=== PATIENT | female | born 1985 | race Caucasian/White ===

== ENCOUNTER → 2017-07-24 | Outpatient (CLI) | payer BC ==
[2017-07-24 17:13] LABS: Clam IgE <0.10 kU/L; Egg White IgE <0.10 kU/L; Peanut IgE <0.10 kU/L; Scallop IgE <0.10 kU/L; Soybean IgE <0.10 kU/L
[2017-07-24 17:25] LABS: Alternaria alternata IgE <0.10 kU/L; Aspergillus fumagatus IgE <0.10 kU/L; Cat Epith & Dander IgE 1.32 kU/L; Cladosporian herbarum IgE <0.10 kU/L; Dermato. farinae IgE <0.10 kU/L; Maple (Box Elder) IgE <0.10 kU/L; Orchard Grs(Cocksfoot) IgE <0.10 kU/L; Ragweed,Common IgE <0.10 kU/L
== END | disposition home or self-care (01) ==
LOC: LABWHC1 10:36
PROVIDERS: ATTEND Internal Medicine Critical Care Medicine
DX: J31.0 Chronic rhinitis (principal)
CPT/HCPCS: 36415; 82785; 86003

== ENCOUNTER → 2018-07-07 | Outpatient (CLI) | payer BC | LOC: LABWHC1 08:35 | PROVIDERS: ATTEND Otolaryngology | DX: J30.89 Other allergic rhinitis (principal) | CPT/HCPCS: 36415 ==

== ENCOUNTER → 2021-11-28 | Outpatient (CLI) | payer BC ==
--- NOTE | 2021-11-28 14:17 | US ---
EXAMINATION TYPE: US thyroid st tissue head/neck DATE OF EXAM: 11/28/2021 COMPARISON: NONE CLINICAL HISTORY: R22.1 Left Neck Mass. Left posterior neck palpable area x 1 month Left neck: multiple lymph nodes seen with largest measuring 3.5 x 1.1 x 1.7cm Several prominent and enlarged left neck lymph nodes on images stated that area of clinical concern i ncluding dominant lymph node with eccentric cortical thickening but preservation of fatty hilum towar ds end of study. IMPRESSION: Abnormal adenopathy is confirmed. Differential includes infectious and/or inflammatory e tiologies versus neoplasm. If palpable abnormality does not resolve or if felt to become bigger furth er investigation with contrast-enhanced neck CT would be advised to exclude malignancy.
== END | disposition home or self-care (01) ==
LOC: RADUSWWP 12:23
PROVIDERS: ATTEND Otolaryngology
DX: R59.9 Enlarged lymph nodes, unspecified (principal)
CPT/HCPCS: 76536

== ENCOUNTER → 2021-11-30 | Outpatient (CLI) | payer BC ==
--- NOTE | 2021-11-30 18:34 | CONS ---
CONSULTATION DATE OF SERVICE: 11/30/2021 This 36-year-old lady has been evaluated in [facility] for possible obstructive sleep apnea-hypopnea syndrome and sleepiness during the day. HISTORY OF PRESENT ILLNESS/SLEEP-WAKE EVALUATION: Patient's usual sleep schedule on weekdays is from 10 p.m. to 7 a.m. and on weekends from 11 p.m. to 9 or 9:30 a.m. No problems with falling asleep. No TV in bedroom. She usually sleeps on the stomach position. She has very loud snoring and episodes of gasping for air. She wakes up from sleep once with nocturia. She does have jerking movements of her legs during the night. Rarely she has episodes of mlx-ls-pletw movements. No history of hypnagogic hallucinations, sleep paralysis or cataplexy. During the day, the patient feels sleepiness. Banks Sleepiness Scale is increased at 10. She may take one nap in the middle of the day. She describes that, even if she sleeps for many hours, she still feels sleepy during the day. PAST MEDICAL HISTORY: Positive for hypertension, recently under evaluation for neck tumor, allergies, sinusitis. PAST SURGICAL HISTORY: Breast reduction, appendectomy. MEDICATIONS: Phentermine, hydrochlorothiazide, Flonase, Claritin, multivitamins, losartan. SOCIAL HISTORY: Negative for smoking. Alcohol consumption occasional. FAMILY HISTORY: Hypertension, snoring, sleep apnea, thyroid problems, diabetes. REVIEW OF SYSTEMS: Snoring, multiple awakenings from sleep, sleepiness during the day. No fevers. No double vision. No recent chest pain. No shortness of breath. No abdominal pain. No bleeding episodes. No blood in the urine. No seizure episodes. PHYSICAL EXAMINATION: GENERAL: Pleasant lady without distress. VITAL SIGNS: BP 177/97, HR 88, RR 16, height 5 feet 5 inches, weight 264, body mass index 43.9, temperature 97.8, oxygen saturation at room air 98%. HEENT: PERRLA, EOMI, evaluation of oropharynx showed tongue protrudes midline. Extremely low position of soft palate; Mallampati IV. NECK: Supple, no JVD. Thyroid is not palpable. Neck is wide; 16-3/4 inches in circumference. LUNGS: Clear to percussion and to auscultation. Good air exchange. No wheezing or rhonchi. HEART: S1, S2 regular. No murmurs, gallops, or rubs. ABDOMEN: Obese. EXTREMITIES: No clubbing or cyanosis. SOLID WASTE ENGINEER: Awake, alert, and oriented X3. Cranial nerves 2 to 7 intact. There is no fasciculation or atrophy. noted. No focal deficits observed. IMPRESSION: 1. Loud snoring, awakenings from sleep with gasping for air, extremely low position of soft palate, Mallampati IV, wide neck, 16-3/4 inches in circumference, sleepiness, Banks Sleepiness Scale increased to 10; obstructive sleep apnea-hypopnea syndrome. 2. Obesity; body mass index 43.9. 3. Hypertension. 4. Neck tumor, under evaluation. 5. Allergies. 6. History of sinusitis. 7. Status post breast reduction surgery. 8. Rare episodes of ztx-pf-alkxs movements. 9. Status post appendectomy. PLAN: 1. Home sleep apnea test for evaluation of patient's breathing during sleep. 2. Following plan after reviewing results of sleep study. 3. CPAP/BiPAP titration if sleep study confirms obstructive sleep apnea-hypopnea syndrome. 4. Preferable position during sleep on the side. 5. No driving if patient feels any sleepiness. 6. I will see patient for follow up visit to explain results of testing and following plan. Thank you very much for referring this patient for consultation. Sincerely, Chilango Castillo MD, PhD, FAASM Diplomat of [place] [employer] Sleep Medicine [employer] of [place] [employer] [facility] [place] MMODL / SHAVONN: [id number] /
== END | disposition home or self-care (01) ==
LOC: SLEEP 14:34
PROVIDERS: ATTEND Internal Medicine
DX: G47.33 Obstructive sleep apnea (adult) (pediatric) (principal); R53.83 Other fatigue
CPT/HCPCS: 99211

== ENCOUNTER 2021-12-01 09:29 | Day surgery (SDC) | payer BC ==
[2021-12-01 10:09] VITALS: RESP 16; TEMP 98.1
--- NOTE | 2021-12-01 10:55 | US ---
ULTRASOUND GUIDED CORE BIOPSY LEFT NECK LYMPHADENOPATHY: CLINICAL HISTORY: Left neck lymphadenopathy FINDINGS: The procedure was explained to the patient. The risks, complications, benefits and alternatives were discussed and any questions were answered. Informed consent was obtained. Patient was placed supin e on the ultrasound table and prepped and draped in the usual sterile fashion. Utilizing a 18-gauge core biopsy needle, five passes were made into the left neck requested lymph node. Patient was stable throughout the procedure. Pathology is pending. All elements of maximal barrier and sterile technique were utilized. IMPRESSION: 1. Successful ultrasound guided biopsy left neck lymph node.
[2021-12-01 17:33] VITALS: BP 135/81; PULSE 89
== END 2021-12-01 11:15 | disposition home or self-care (01) ==
LOC: RADPROMAIN 09:29
PROVIDERS: ATTEND Otolaryngology
DX: R59.1 Generalized enlarged lymph nodes (principal)
CPT/HCPCS: 38505; 76942; 88305; 88341; 88342

== ENCOUNTER 2022-01-31 17:44 | Emergency (ER) | payer BC ==
[2022-01-31 19:34] VITALS: BP 163/92; PULSE 106; RESP 18; TEMP 98.6
[2022-01-31 20:02] LABS: Appearance,Urine Cloudy (Clear); Bacteria,Urine Occasional /hpf; Bilirubin,Urine Negative (Negative); Blood,Urine Negative (Negative); Color,Urine Yellow; Glucose,Urine (UA) Negative (Negative); Ketones,Urine Trace (Negative); Leukocyte Esterase,Urine Large (Negative); Mucus,Urine Rare /hpf; Nitrite,Urine Negative (Negative); PH, Urine 6.5 (5.0-8.0); Protein,Urine 1+ (Negative); RBC,Urine 10 /hpf (0-5); Specific Gravity,Urine 1.034 (1.001-1.035); Squamous Epithelial Cell,Urine 18 /hpf (0-4); Urobilinogen,Urine <2.0 mg/dL (<2.0); WBC,Urine >182 /hpf (0-5)
--- NOTE | 2022-01-31 20:41 | XR ---
EXAMINATION TYPE: XR KUB DATE OF EXAM: 01/31/2022 COMPARISON: None HISTORY: Abdominal pain TECHNIQUE: 2 views upright FINDINGS: There is no sign of intestinal obstruction or pneumoperitoneum. Fecal pattern is normal. Th ere is thoracolumbar mild levoscoliosis. No pathologic calcifications. IMPRESSION: Nonacute abdomen.
[2022-01-31 20:45] LABS: Basophils # (A) 0.1 k/uL (0-0.2); Basophils % (A) 1 %; Eosinophils # (A) 0.2 k/uL (0-0.7); Eosinophils % (A) 2 %; HGB 12.7 gm/dL (11.4-16.0); Lymphocytes # (A) 3.3 k/uL (1.0-4.8); Lymphocytes % (A) 33 %; MCH 27.1 pg (25.0-35.0); MCHC 32.6 g/dL (31.0-37.0); MCV 83.1 fL (80.0-100.0); Mean Platelet Volume 6.5; Monocytes # (A) 0.4 k/uL (0-1.0); Monocytes % (A) 4 %; Neutrophils % (A) 60 %; Platelet Count 463 k/uL (150-450); RBC 4.69 m/uL (3.80-5.40)
[2022-01-31 20:54] LABS: ALT 27 U/L (4-34); AST 34 U/L (14-36); African American GFR (CKD) >90 (>60 ml/min/1.73 sqM); Albumin 4.5 g/dL (3.5-5.0); Alkaline Phosphatase 77 U/L (38-126); Amylase 45 U/L (30-110); Anion Gap 11 mmol/L; Blood Urea Nitrogen 9 mg/dL (7-17); Calcium 9.1 mg/dL (8.4-10.2); Carbon Dioxide 24 mmol/L (22-30); Chloride 104 mmol/L (98-107); Glucose 114 mg/dL (74-99); Lipase 70 U/L (23-300); Non-African American GFR(CKD) >90 (>60 ml/min/1.73 sqM); Potassium 3.5 mmol/L (3.5-5.1); Sodium 139 mmol/L (137-145); Total Bilirubin 0.4 mg/dL (0.2-1.3); Total Protein 7.4 g/dL (6.3-8.2)
--- NOTE | 2022-01-31 21:01 | ED ---
General Adult HPI - General Chief complaint: Urogenital Stated complaint: Abd Pain Time Seen by Provider: 01/31/22 21:00 Source: patient, RN notes reviewed, old records reviewed Mode of arrival: ambulatory Limitations: no limitations - History of Present Illness Initial comments: 36-year-old female presents to the emergency room with left flank pain radiating into her left lower abdomen since Saturday. Patient states she does have pain with urination. She has a history of kidney stones. She denies any fevers no nausea vomiting or diarrhea. Patient was evaluated in triage -: days(s) (4) Location: left (flank, left lower abdomen) Severity scale (1-10): 10 Quality: sharp Consistency: constant Improves with: none Associated Symptoms: other (dysuria) - Related Data Home Medications Medication Instructions Recorded Confirmed Hydrochlorothiazide 12.5 mg PO DAILY 11/14/21 12/01/21 [hydroCHLOROthiazide] Loratadine [Claritin] 10 mg PO DAILY 11/14/21 12/01/21 Losartan [Cozaar] 12.5 mg PO DAILY 11/14/21 12/01/21 Multivitamins, Thera [Multivitamin 1 tab PO DAILY 11/14/21 12/01/21 (formulary)] Non Formulary Drug 1 each PO DAILY 11/14/21 12/01/21 Phentermine HCl 37.5 mg PO DAILY 11/14/21 12/01/21 Terbinafine [LamISIL] 250 mg PO DAILY 11/14/21 12/01/21 Previous Rx's Medication Instructions Recorded Sulfamethox-Tmp 800-160Mg [Bactrim 1 tab PO Q12HR 5 Days #10 tab 01/31/22 DS 800-160 mg] Allergies Allergy/AdvReac Type Severity Reaction Status Date / Time latex Allergy Rash/Hives Verified 01/31/22 19:34 Penicillins Allergy Nausea & Verified 01/31/22 19:34 Vomiting Review of Systems ROS Statement: Those systems with pertinent positive or pertinent negative responses have been documented in the HPI. ROS Other: All systems not noted in ROS Statement are negative. Past Medical History Past Medical History: Hypertension Additional Past Medical History / Comment(s): fugal infection under toenails, fibroids History of Any Multi-Drug Resistant Organisms: None Reported Past Surgical History: Appendectomy Additional Past Surgical History / Comment(s): uterine fibroid removal, breast reduction Additional Past Anesthesia/Blood Transfusion Reaction / Comment(s): difficult to awaken post anesthesia Past Psychological History: No Psychological Hx Reported Smoking Status: Never smoker Past Alcohol Use History: Occasional Past Drug Use History: None Reported - Past Family History Mother Family Medical History: Diabetes Mellitus, Hypertension Father Family Medical History: Coronary Artery Disease (CAD), Diabetes Mellitus, Hypertension General Exam Limitations: no limitations General appearance: alert, in no apparent distress Eye exam: Present: normal appearance. Absent: scleral icterus, conjunctival injection Respiratory exam: Absent: respiratory distress, accessory muscle use Cardiovascular Exam: Present: tachycardia GI/Abdominal exam: Present: soft, tenderness (Left lower abdominal) Extremities exam: Present: normal capillary refill Back exam: Present: CVA tenderness (L). Absent: CVA tenderness (R) Neurological exam: Present: alert, oriented X3 Psychiatric exam: Present: normal affect, normal mood Skin exam: Present: warm, dry, normal color. Absent: cyanosis, diaphoretic Course Vital Signs 01/31/22 19:31 Temperature 98.6 F Pulse Rate 106 H Respiratory 18 Rate Blood Pressure 163/92 O2 Sat by Pulse 98 Oximetry Medical Decision Making - Medical Decision Making Patient presents with left flank pain radiating into her left lower abdomen and dysuria since Saturday. She has a history of kidney stones. X-ray shows nonacute abdomen. CT the abdomen and pelvis was performed to rule out kidney stone and hydronephrosis. There is no evidence of renal stone or obstruction. No hydronephrosis. There is an enlarged uterus with irregular linear density in the posterior uterine fundus, could be calcification from demise vs atypical calcifying uterine fibroid. Patient says that she does have calcified fibroids. Serum HCG is negative. She was offered a transvaginal ultrasound and declined. There is no evidence of leukocytosis. Electrolytes are unremarkable. UA is cloudy with large leukocyte esterase greater than 182 white blood cell and bacteria. Patient will be treated for UTI with antibiotics and directed to follow up with her primary care doctor this week. Take Tylenol and/or Motrin as needed for any pain. Return to the emergency room with any new or concerning symptoms. She states she also has an appointment with Dr. Beverly next week to discuss her painful periods. - Lab Data Result diagrams: 01/31/22 20:35 01/31/22 20:35 Lab Results 01/31/22 01/31/22 01/31/22 Range/Units 19:36 20:35 20:35 WBC 10.0 (3.8-10.6) k/uL RBC 4.69 (3.80-5.40) m/uL Hgb 12.7 (11.4-16.0) gm/dL Hct 39.0 (34.0-46.0) % MCV 83.1 (80.0-100.0) fL MCH 27.1 (25.0-35.0) pg MCHC 32.6 (31.0-37.0) g/dL RDW 13.0 (11.5-15.5) % Plt Count 463 H (150-450) k/uL MPV 6.5 Neutrophils % 60 % Lymphocytes % 33 % Monocytes % 4 % Eosinophils % 2 % Basophils % 1 % Neutrophils # 6.0 (1.3-7.7) k/uL Lymphocytes # 3.3 (1.0-4.8) k/uL Monocytes # 0.4 (0-1.0) k/uL Eosinophils # 0.2 (0-0.7) k/uL Basophils # 0.1 (0-0.2) k/uL Sodium 139 (137-145) mmol/L Potassium 3.5 (3.5-5.1) mmol/L Chloride 104 (98-107) mmol/L Carbon Dioxide 24 (22-30) mmol/L Anion Gap 11 mmol/L BUN 9 (7-17) mg/dL Creatinine 0.57 (0.52-1.04) mg/dL Est GFR (CKD-EPI)AfAm >90 (>60 ml/min/1.73 sqM) Est GFR (CKD-EPI)NonAf >90 (>60 ml/min/1.73 sqM) Glucose 114 H (74-99) mg/dL Plasma Lactic Acid Ernst (0.7-2.0) mmol/L Calcium 9.1 (8.4-10.2) mg/dL Total Bilirubin 0.4 (0.2-1.3) mg/dL AST 34 (14-36) U/L ALT 27 (4-34) U/L Alkaline Phosphatase 77 (38-126) U/L Total Protein 7.4 (6.3-8.2) g/dL Albumin 4.5 (3.5-5.0) g/dL Amylase 45 (30-110) U/L Lipase 70 (23-300) U/L HCG, Qual Urine Color Yellow Urine Appearance Cloudy H (Clear) Urine pH 6.5 (5.0-8.0) Ur Specific [place] 1.034 (1.001-1.035) Urine Protein 1+ H (Negative) Urine Glucose (UA) Negative (Negative) Urine Ketones Trace H (Negative) Urine Blood Negative (Negative) Urine Nitrite Negative (Negative) Urine Bilirubin Negative (Negative) Urine Urobilinogen <2.0 (<2.0) mg/dL Ur Leukocyte Esterase Large H (Negative) Urine RBC 10 H (0-5) /hpf Urine WBC >182 H (0-5) /hpf Ur Squamous Epith Cells 18 H (0-4) /hpf Urine Bacteria Occasional H (None) /hpf Urine Mucus Rare H (None) /hpf 01/31/22 01/31/22 Range/Units 20:35 20:35 WBC (3.8-10.6) k/uL RBC (3.80-5.40) m/uL Hgb (11.4-16.0) gm/dL Hct (34.0-46.0) % MCV (80.0-100.0) fL MCH (25.0-35.0) pg MCHC (31.0-37.0) g/dL RDW (11.5-15.5) % Plt Count (150-450) k/uL MPV Neutrophils % % Lymphocytes % % Monocytes % % Eosinophils % % Basophils % % Neutrophils # (1.3-7.7) k/uL Lymphocytes # (1.0-4.8) k/uL Monocytes # (0-1.0) k/uL Eosinophils # (0-0.7) k/uL Basophils # (0-0.2) k/uL Sodium (137-145) mmol/L Potassium (3.5-5.1) mmol/L Chloride (98-107) mmol/L Carbon Dioxide (22-30) mmol/L Anion Gap mmol/L BUN (7-17) mg/dL Creatinine (0.52-1.04) mg/dL Est GFR (CKD-EPI)AfAm (>60 ml/min/1.73 sqM) Est GFR (CKD-EPI)NonAf (>60 ml/min/1.73 sqM) Glucose (74-99) mg/dL Plasma Lactic Acid Ernst 1.7 (0.7-2.0) mmol/L Calcium (8.4-10.2) mg/dL Total Bilirubin (0.2-1.3) mg/dL AST (14-36) U/L ALT (4-34) U/L Alkaline Phosphatase (38-126) U/L Total Protein (6.3-8.2) g/dL Albumin (3.5-5.0) g/dL Amylase (30-110) U/L Lipase (23-300) U/L HCG, Qual Not Detected Urine Color Urine Appearance (Clear) Urine pH (5.0-8.0) Ur Specific [place] (1.001-1.035) Urine Protein (Negative) Urine Glucose (UA) (Negative) Urine Ketones (Negative) Urine Blood (Negative) Urine Nitrite (Negative) Urine Bilirubin (Negative) Urine Urobilinogen (<2.0) mg/dL Ur Leukocyte Esterase (Negative) Urine RBC (0-5) /hpf Urine WBC (0-5) /hpf Ur Squamous Epith Cells (0-4) /hpf Urine Bacteria (None) /hpf Urine Mucus (None) /hpf Disposition Clinical Impression: UTI (urinary tract infection) Disposition: HOME SELF-CARE Condition: Good Instructions (If sedation given, give patient instructions): Urinary Tract Infection in Women (ED) Additional Instructions: Increase your fluid intake, Tylenol and or Motrin as needed for pain. Take antibiotics as prescribed. Follow-up with your primary care doctor within the next 7 days for reevaluation. Return to the emergency room with any new or concerning symptoms. Prescriptions: Sulfamethox-Tmp 800-160Mg [Bactrim DS 800-160 mg] 1 tab PO Q12HR 5 Days #10 tab Is patient prescribed a controlled substance at d/c from ED?: No Referrals: Emil Everett DO [Primary Care Provider] - 1-2 days
[2022-01-31] MEDS ORDERED: KETOROLAC 15 MG/ML 1 ML VIAL IVP STA (21:06)
[2022-01-31] MEDS ORDERED: SODIUM CHLORIDE 0.9% 1,000 ML IV ONE (21:06)
[2022-01-31] MEDS ORDERED: SULFAMETHOX-TMP 800-160MG 1 EACH TAB PO STA (21:39)
[2022-01-31] MEDS ORDERED: KETOROLAC 15 MG/ML 1 ML VIAL IM STA (21:46)
--- NOTE | 2022-01-31 21:50 | CT ---
EXAMINATION TYPE: CT abdomen pelvis wo con DATE OF EXAM: 01/31/2022 COMPARISON: None HISTORY: lower abd pain and flank pain CT DLP: 1637 mGycm Automated exposure control for dose reduction was used. Images obtained from the diaphragm to the floor the pelvis with no contrast. Lung bases are clear. There is no pleural effusion. Heart size is normal. No pericardial effusion. Li carolyn spleen pancreas gallbladder or stomach appear intact. The bile duct are not dilated. There is no adrenal mass. Kidneys have normal size and contour. No hydronephrosis. Ureters are not di lated. Bladder distends smoothly. There is enlarged uterus with irregular linear density in the poste rior uterine fundus. This could be calcification from a demise. Correlation with a history need ed. Atypical calcifying uterine fibroid also possible. Appendix not seen. No sign of thickened appendix. There is no mesenteric edema. No ascites or free air. No bowel obstruction. Lumbar vertebrae are of normal alignment. Posterior elements are intact. No compression fracture. Bon y pelvis is intact. The hip joints are intact. IMPRESSION: No evidence of renal stone or obstruction. Appendix not seen. Unusual calcification in the uterine fundus on the right side could be old demise or unusual ca lcifying fibroid.
== END 2022-01-31 23:37 | disposition home or self-care (01) ==
LOC: EC 17:44
DX: N39.0 Urinary tract infection, site not specified (principal); I10 Essential (primary) hypertension; Z91.040 Latex allergy status; Z88.0 Allergy status to penicillin; Z79.899 Other long term (current) drug therapy
CPT/HCPCS: 36415; 80053; 82150; 83605; 83690; 85025; 81001; 84703; 87086; 74018; 74176; 99284; 96372; J1885

== ENCOUNTER → 2022-04-20 | Outpatient (CLI) | payer BC ==
--- NOTE | 2022-04-21 09:53 | US ---
EXAMINATION TYPE: US st tissue neck DATE OF EXAM: 04/20/2022 COMPARISON: US dated 11/28/2021 CLINICAL HISTORY: 37-year-old female R22.1 SWELLING, MASS AND LUMP IN NECK. TECHNIQUE: Scanning was performed directly over palpable, as pointed out by patient, left posterior n chaya. FINDINGS: [employer] notes: There are two mildly prominent lymph nodes nodes noted, both measure 8 x 4 mm. Ear ly in the year, one of these lymph nodes was visualized measuring 11 x 8 x 5 mm.. IMPRESSION: 2 prominent lymph nodes left posterior neck corresponding to the patient's palpable site measuring up to 11 x 8 mm. Earlier in the year, one of these was seen measuring 8 x 4 mm. We note that the patien t's 11/28/2021 scan showed additional abnormal left cervical lymphadenopathy. Correlate with biopsy re sults and any established diagnosis.
== END | disposition home or self-care (01) ==
LOC: RADUSWWP 14:43
PROVIDERS: ATTEND Otolaryngology
DX: R59.0 Localized enlarged lymph nodes (principal)
CPT/HCPCS: 76536

== ENCOUNTER 2024-04-14 05:51 | Emergency (ER) | payer OTHER ==
[2024-04-14] MEDS ORDERED: PROCHLORPERAZINE INJ 10 MG/2 ML VIAL ONE (06:41)
[2024-04-14] MEDS ORDERED: FAMOTIDINE 20 MG/2 ML VIAL ONE (06:41)
[2024-04-14] MEDS ORDERED: SODIUM CHLORIDE 0.9% 1,000 ML BAG ONE (23:59)
--- NOTE | 2024-05-20 15:04 | XR ---
Patient Juliana Kruas ID [id number] Order # EXAMINATION TYPE: XR chest 2V DATE OF EXAM: 04/14/2024 COMPARISON: No comparison available on downtime PACS. INDICATION: Chest pain TECHNIQUE: Frontal and lateral views of the chest are obtained. FINDINGS: The heart size is normal. The pulmonary vasculature is normal. The lungs are clear. IMPRESSION: 1. No acute pulmonary process.
== END 2024-04-14 13:11 | disposition home or self-care (01) ==
LOC: EC 05:51
DX: R07.9 Chest pain, unspecified (principal); R11.2 Nausea with vomiting, unspecified
CPT/HCPCS: 93005; 85379; 80053; 82150; 83605; 83690; 83735; 84100; 84484; 85025; 85610; 85730; 81003; 81025; 71046; 99285; J0780; J3490

== ENCOUNTER → 2024-09-16 | Outpatient (CLI) | payer OTHER ==
--- NOTE | 2024-09-16 20:06 | MR ---
EXAMINATION TYPE: MR lumbar spine wo con DATE OF EXAM: 09/16/2024 COMPARISON: NONE HISTORY: low back pain, heaviness feeling in legs, pain into left buttock TECHNIQUE: Multiplanar, multisequence imaging of the lumbar spine is performed without IV contrast. FINDINGS: Sagittal images of the lumbar spine show vertebral body heights and alignment to appear sat isfactory. There is disc desiccation with moderate disc space narrowing and heterogeneous Modic type I endplate changes at the L5-S1 level. The conus medullaris is normal in position and signal ending inferior L1 level. Small 1.1 cm Tarlov cyst posterior to S2 vertebra sagittal image 8 is noted.. Axial images show T12-L1 through L4-L5 levels to appear within normal limits. Axial images at L5-S1 level shows mild broad-based disc bulge with foraminal disc protrusion minimall y effacing the anterior thecal sac with asymmetric moderate left-sided anterior inferior neural espinoza inal narrowing encroaching on the inferior margin of the exiting left L5 nerve sagittal image 4 and a xial image 10. Right-sided neural foramina is patent. Paraspinal muscle bulk is maintained. IMPRESSION: Focal degenerative change at L5-S1 level likely accounts for patient's left-sided radicul opathy type symptoms as detailed above. [facility], , 09/16/2024 8:04 PM
== END | disposition home or self-care (01) ==
LOC: RADMRIMAIN 18:57
PROVIDERS: ATTEND Orthopaedic Surgery
DX: M47.26 Other spondylosis with radiculopathy, lumbar region (principal); M51.360 Other intervertebral disc degeneration, lumbar region with discogenic back pain only
CPT/HCPCS: 72148

== ENCOUNTER → 2025-03-15 | Outpatient (CLI) | payer OTHER ==
--- NOTE | 2025-03-15 11:25 | XR ---
EXAMINATION TYPE: XR chest 2V DATE OF EXAM: 03/15/2025 11:05 AM COMPARISON: Chest radiographs from 04/14/2024. CLINICAL INDICATION: Female, 39 years old with history of COUGH; TECHNIQUE: XR chest 2V Frontal and lateral views of the chest. FINDINGS: Lungs/Pleura: There is no evidence of pleural effusion, focal consolidation, or pneumothorax. Pulmonary vascularity: Unremarkable. Heart/mediastinum: Cardiomediastinal silhouette is unremarkable. Musculoskeletal: No acute osseous pathology. IMPRESSION: No acute cardiopulmonary disease/process. [facility], , 03/15/2025 11:23 AM
== END | disposition home or self-care (01) ==
LOC: RADXRMAIN 10:45
PROVIDERS: ATTEND Family Medicine
DX: R05.9 Cough, unspecified (principal)
CPT/HCPCS: 71046